=== PATIENT | female | born 1975 | race Two or more races ===

== ENCOUNTER 2018-12-26 22:11 | Emergency (ER) | payer MEDICAID ==
[~2018-12-26] VITALS: Ht 149.9 cm; Wt 62.6 kg
[2018-12-26 23:09] VITALS: BP 102/75
[2018-12-27] MEDS ORDERED: BENZOCAINE (DENTAL) 20 % SPRAY 60ML MT ONE (01:30)
[2018-12-27] MEDS ORDERED: HYDROcodone-ACET 10/325MG TAB PO ONE (02:00)
[2018-12-27] MEDS ORDERED: cefTRIAXone SOD 1,000 MG VL IM ONE (02:00)
== END 2018-12-27 02:45 | disposition home or self-care (01) ==
LOC: ER 22:11
DX: K08.89 Other specified disorders of teeth and supporting structures (principal)
CPT/HCPCS: 64400; 96372; 99284; J0696

== ENCOUNTER 2021-07-25 14:19 | Emergency (ER) | payer OTHER ==
[~2021-07-25] VITALS: Ht 149.9 cm; Wt 65.8 kg
[2021-07-25 14:59] VITALS: BP 118/66
== END 2021-07-25 15:56 | disposition left against medical advice (07) ==
LOC: ER 14:19
DX: R53.1 Weakness (principal); R06.02 Shortness of breath; Z53.29 Procedure and treatment not carried out because of patient's decision for other reasons; Z90.710 Acquired absence of both cervix and uterus
CPT/HCPCS: 71046

== ENCOUNTER 2023-12-09 12:41 | Inpatient (IN) | payer OTHER ==
[~2023-12-09] VITALS: Ht 149.9 cm; Wt 70.1 kg
[~2023-12-09 12:41] MED LIST: ACET500T58 PO; NAPR-957 PO; PROM1SOL4 PO
[2023-12-09 13:04] LABS: Basophils # (auto) 0 10 ^3/uL (0-0.2); Basophils % (auto) 0.1 % (0.0-2.0); Eosinophils # (auto) 0.1 10 ^3/uL (0-0.8); Eosinophils % (auto) 1.6 % (0.0-7.0); Hematocrit 40.7 % (36.0-46.0); Hemoglobin 13.3 g/dL (12.2-16.2); Lymphocytes # (auto) 1.5 10 ^3/uL (0.4-5.4); Lymphocytes % (auto) 24.5 % (10.0-50.0); Mean Corpuscular Hemoglobin 30.7 pg (28.0-32.0); Mean Corpuscular Hgb Conc. 32.7 g/dL (32.0-36.0); Mean Corpuscular Volume 93.8 fL (80.0-100.0); Monocytes # (auto) 0.5 10 ^3/uL (0-1.3); Neutrophils % (auto) 65.8 % (37.0-80.0); Red Blood Cells 4.34 10^6/uL (4.0-5.20); Red Cell Distribution Width 13.3 % (11.8-14.3); White Blood Cell 6.1 10^3/uL (4.4-10.8)
[2023-12-09 13:13] LABS: Alanine Aminotransferase 23 U/L (7-40); Albumin 4.6 g/dL (3.2-4.8); Alkaline Phosphatase 71 U/L (46-116); Anion Gap 8 (5-15); Aspartate Aminotransferase 22 U/L (13-40); BUN/Creatinine Ratio 16.9 (10.0-20.0); Blood Urea Nitrogen 12 mg/dL (9-23); Calcium 9.5 mg/dL (8.5-10.1); Carbon Dioxide 26 mmol/L (20-30); Chloride 103 mmol/L (98-107); Sodium 137 mmol/L (136-145)
[2023-12-09 13:14] LABS: Bilirubin, Total 0.4 mg/dL (0.2-1.0); Total Protein 6.6 g/dL (5.7-8.2)
[2023-12-09 13:17] LABS: Glucose 123 mg/dL (74-106)
[2023-12-09] MEDS: ASPirin 325 MG TAB PO ONE (13:39)
[2023-12-09] MEDS ORDERED: HYDROcodone-ACET 5/325MG TAB PO PRN (18:15)
[2023-12-09] MEDS ORDERED: DOCUSATE SOD 100 MG CAP PO PRN (18:15)
[2023-12-09] MEDS ORDERED: ACETAMINOPHEN 325 MG TAB PO PRN (18:15)
[2023-12-09] MEDS ORDERED: hydrALAZINE HCL 20 MG/ML VL IV PRN (18:15)
[2023-12-09] MEDS: ATORVASTATIN 20 MG TAB PO SCH (23:31)
[2023-12-10] VITALS (8 sets, daily range): BP systolic 91–106; BP diastolic 56–65; PULSE 57–73; RESP 17–22; TEMP 98.1–98.5; O2SAT 95–100
[2023-12-10] MEDS ORDERED: ATOR10TA PO (03:13)
[2023-12-10] MEDS ORDERED: GABA250S7 PO (03:13)
[2023-12-10 04:59] LABS: Basophils # (auto) 0 10 ^3/uL (0-0.2); Basophils % (auto) 0.1 % (0.0-2.0); Eosinophils # (auto) 0.1 10 ^3/uL (0-0.8); Eosinophils % (auto) 2.3 % (0.0-7.0); Hematocrit 37.9 % (36.0-46.0); Hemoglobin 12.5 g/dL (12.2-16.2); Lymphocytes # (auto) 1.7 10 ^3/uL (0.4-5.4); Mean Corpuscular Hemoglobin 30.8 pg (28.0-32.0); Mean Corpuscular Volume 93.2 fL (80.0-100.0); Monocytes # (auto) 0.4 10 ^3/uL (0-1.3); Monocytes % (auto) 6.7 % (0.0-12.0); Neutrophils # (auto) 3.4 10 ^3/uL (1.6-8.6); Neutrophils % (auto) 60.9 % (37.0-80.0); Red Blood Cells 4.07 10^6/uL (4.0-5.20); Red Cell Distribution Width 13.2 % (11.8-14.3); White Blood Cell 5.5 10^3/uL (4.4-10.8)
[2023-12-10 05:16] LABS: Alanine Aminotransferase 16 U/L (7-40); Albumin 3.9 g/dL (3.2-4.8); Alkaline Phosphatase 58 U/L (46-116); Anion Gap 6 (5-15); Aspartate Aminotransferase 23 U/L (13-40); BUN/Creatinine Ratio 14.5 (10.0-20.0); Bilirubin, Total 0.6 mg/dL (0.2-1.0); Blood Urea Nitrogen 9 mg/dL (9-23); Calcium 8.7 mg/dL (8.5-10.1); Carbon Dioxide 27 mmol/L (20-30); Chloride 104 mmol/L (98-107); Cholesterol 150 mg/dL (< 200); Glucose 90 mg/dL (74-106); HDL Cholesterol 76 mg/dL (40-59); LDL Cholesterol 64 mg/dL (< 100); Potassium 3.6 mmol/L (3.5-5.1); Sodium 137 mmol/L (136-145); Total Protein 5.9 g/dL (5.7-8.2); Triglycerides 70 mg/dL (< 150)
[2023-12-10] MEDS: NITROGLYCERIN 0.4 MG SL TAB SL PRN (08:26)
[2023-12-10 10:45] LABS: INR 1.04 (0.9-1.15); Partial Thromboplastin Time 26.2 SEC (24.5-34.5); Prothrombin Time 10.9 sec (9.3-11.8)
[2023-12-10] MEDS: ASPirin-EC 81 mg tab PO SCH (10:52)
[2023-12-10] MEDS: MORPHINE SULFATE INJ 2 MG/ml SYRG IV PRN (12:34)
[2023-12-10] MEDS: ONDANSETRON HCL 4 MG/2 ML VIAL IV PRN (12:34)
[2023-12-10 15:30] LABS: Urine Bacteria FEW /hpf (None Seen); Urine Blood Negative /uL (Negative); Urine Clarity Clear (Clear); Urine Color Colorless (Yellow); Urine Protein, UAD Negative (Negative); Urine Specific Gravity 1.013 (1.001-1.035); Urine Urobilinogen Normal (Negative); Urine WBC <1 /hpf (0 - 5); Urine pH 7.5 (5.0-8.0)
[2023-12-10 15:34] LABS: Amphetamine Screen, Urine Neg (NEGATIVE); Barbiturate Scree,Urine Neg (NEGATIVE); Cocaine Screen, Urine Neg (NEGATIVE)
[2023-12-10 15:35] LABS: Cannabinoid Screen, Urine Neg (NEGATIVE); Opiate Scree,Urine Neg (NEGATIVE); Phencyclidine Screen, Urine Neg (NEGATIVE)
[2023-12-10] MEDS ORDERED: HEPARIN DRIP/D5W 100UNITS/ML 250 ML IV SCH (15:45)
[2023-12-10 16:17] LABS: Basophils # (auto) 0 10 ^3/uL (0-0.2); Basophils % (auto) 0.1 % (0.0-2.0); Eosinophils # (auto) 0.1 10 ^3/uL (0-0.8); Eosinophils % (auto) 1.3 % (0.0-7.0); Hematocrit 39.9 % (36.0-46.0); Hemoglobin 13.2 g/dL (12.2-16.2); Lymphocytes # (auto) 1.4 10 ^3/uL (0.4-5.4); Lymphocytes % (auto) 23.6 % (10.0-50.0); Mean Corpuscular Hemoglobin 30.6 pg (28.0-32.0); Mean Corpuscular Hgb Conc. 33.1 g/dL (32.0-36.0); Mean Corpuscular Volume 92.4 fL (80.0-100.0); Monocytes # (auto) 0.5 10 ^3/uL (0-1.3); Monocytes % (auto) 8.5 % (0.0-12.0); Neutrophils # (auto) 3.8 10 ^3/uL (1.6-8.6); Neutrophils % (auto) 66.5 % (37.0-80.0); Nucleated Red Blood Cells % 0.1 %; Red Blood Cells 4.32 10^6/uL (4.0-5.20); Red Cell Distribution Width 13.3 % (11.8-14.3); White Blood Cell 5.7 10^3/uL (4.4-10.8)
[2023-12-10 16:37] LABS: Benzodiazephine Screen, Urine Neg (NEGATIVE)
[2023-12-10] MEDS: HEPARIN DRIP/D5W 100UNITS/ML 250 ML IV SCH (17:41)
[2023-12-10] MEDS: ERGOCALCIFEROL 50,000 UNIT(1.25MG) CAP PO SCH (17:41)
[2023-12-10] MEDS: HEPARIN SODIUM (PORCINE) 5000 UNITS/ML 1ML VIAL IV ONE (17:41)
[2023-12-10 18:45] LABS: INR 1.01 (0.9-1.15); Partial Thromboplastin Time 25.9 SEC (24.5-34.5); Prothrombin Time 10.6 sec (9.3-11.8)
[2023-12-10] MEDS: GABAPENTIN 100 MG CAP PO SCH (21:20)
[2023-12-10] MEDS ORDERED: ENOXAPARIN SOD 80 MG/0.8ML SYRINGE SC SCH (22:00)
[2023-12-10 23:59] LABS: INR 1.02 (0.9-1.15); Partial Thromboplastin Time 45.6 SEC (24.5-34.5); Prothrombin Time 10.7 sec (9.3-11.8)
[2023-12-11] VITALS (16 sets, daily range): BP systolic 81–110; BP diastolic 39–72; PULSE 52–71; RESP 11–18; TEMP 97.9–99.7; O2SAT 94–99
[2023-12-11 06:37] LABS: Alanine Aminotransferase 18 U/L (7-40); Albumin 3.7 g/dL (3.2-4.8); Alkaline Phosphatase 59 U/L (46-116); Anion Gap 7 (5-15); Aspartate Aminotransferase 18 U/L (13-40); BUN/Creatinine Ratio 19.7 (10.0-20.0); Blood Urea Nitrogen 13 mg/dL (9-23); Calcium 8.3 mg/dL (8.7-10.4); Carbon Dioxide 24 mmol/L (20-30); Chloride 106 mmol/L (98-107); Glucose 95 mg/dL (74-106); Magnesium 1.8 mg/dL (1.6-2.6); Sodium 137 mmol/L (136-145)
[2023-12-11 06:38] LABS: Bilirubin, Total 0.4 mg/dL (0.2-1.0); Total Protein 5.9 g/dL (5.7-8.2)
[2023-12-11 06:44] LABS: INR 1.02 (0.9-1.15); Partial Thromboplastin Time 63.6 SEC (24.5-34.5); Prothrombin Time 10.7 sec (9.3-11.8)
[2023-12-11 06:59] LABS: Basophils # (auto) 0 10 ^3/uL (0-0.2); Basophils % (auto) 0.2 % (0.0-2.0); Eosinophils # (auto) 0.1 10 ^3/uL (0-0.8); Eosinophils % (auto) 2.2 % (0.0-7.0); Hematocrit 37.1 % (36.0-46.0); Hemoglobin 12.2 g/dL (12.2-16.2); Lymphocytes # (auto) 1.3 10 ^3/uL (0.4-5.4); Mean Corpuscular Hemoglobin 30.6 pg (28.0-32.0); Mean Corpuscular Hgb Conc. 32.9 g/dL (32.0-36.0); Mean Corpuscular Volume 92.9 fL (80.0-100.0); Monocytes # (auto) 0.5 10 ^3/uL (0-1.3); Monocytes % (auto) 7.6 % (0.0-12.0); Neutrophils # (auto) 4.2 10 ^3/uL (1.6-8.6); Nucleated Red Blood Cells % 0.2 %; Red Cell Distribution Width 12.9 % (11.8-14.3); White Blood Cell 6.1 10^3/uL (4.4-10.8)
[2023-12-11 12:39] LABS: INR 0.99 (0.9-1.15); Prothrombin Time 10.4 sec (9.3-11.8)
[2023-12-11 12:50] LABS: Partial Thromboplastin Time 74.5 SEC (24.5-34.5)
[2023-12-11] MEDS: ANGIOMAX 250 MG VIAL IV ONE (13:09)
[2023-12-11] MEDS: MIDAZOLAM HCL 2MG/2ML 2ml VIAL (1mg/ml) ONE (13:10)
[2023-12-11] MEDS: VERAPAMIL 2.5MG/ML INJ 2ML VIAL IV ONE (13:10)
[2023-12-11] MEDS: fentaNYL CITRATE 100 MCG/2 ML VL ONE (13:10)
[2023-12-11] MEDS: SODIUM CHL 0.9% 0 ML ONE (13:10)
[2023-12-11] MEDS: HEPARIN SODIUM (PORCINE) 5000 UNITS/ML 1ML VIAL ONE (13:10)
[2023-12-11] MEDS: IODIXANOL 320MG/ML 100ML BTL IV ONE (13:21)
[2023-12-11] MEDS: SODIUM CHLORIDE 0.9% 500 ML IV ONE (14:46)
[2023-12-11] MEDS: GABAPENTIN 100 MG CAP PO SCH (15:56)
[2023-12-11] MEDS ORDERED: CARB200T4 PO (16:00)
[2023-12-11] MEDS: carBAMazepine 200 MG TAB PO SCH (16:14)
[2023-12-11] MEDS: KETOROLAC TROMETH 30 MG/ML 1ML VIAL IV ONE (17:43)
[2023-12-12 05:08] VITALS: BP 84/53; PULSE 71; RESP 20; TEMP 98.6; O2SAT 99
[2023-12-12 05:56] VITALS: BP 102/56; PULSE 70
[2023-12-12 06:48] LABS: Alanine Aminotransferase 15 U/L (7-40); Albumin 3.6 g/dL (3.2-4.8); Alkaline Phosphatase 59 U/L (46-116); Anion Gap 8 (5-15); Aspartate Aminotransferase 17 U/L (13-40); BUN/Creatinine Ratio 17.1 (10.0-20.0); Blood Urea Nitrogen 13 mg/dL (9-23); Calcium 8.1 mg/dL (8.7-10.4); Carbon Dioxide 23 mmol/L (20-30); Chloride 109 mmol/L (98-107); Glucose 87 mg/dL (74-106); Magnesium 1.9 mg/dL (1.6-2.6); Potassium 4.2 mmol/L (3.5-5.1); Sodium 140 mmol/L (136-145)
[2023-12-12 06:49] LABS: Bilirubin, Total 0.3 mg/dL (0.2-1.0); Total Protein 5.6 g/dL (5.7-8.2)
[2023-12-12 07:06] LABS: Basophils # (auto) 0 10 ^3/uL (0-0.2); Basophils % (auto) 0.2 % (0.0-2.0); Eosinophils # (auto) 0.1 10 ^3/uL (0-0.8); Eosinophils % (auto) 2.3 % (0.0-7.0); Hematocrit 36.8 % (36.0-46.0); Hemoglobin 12.2 g/dL (12.2-16.2); Lymphocytes # (auto) 1.4 10 ^3/uL (0.4-5.4); Lymphocytes % (auto) 26.5 % (10.0-50.0); Mean Corpuscular Hemoglobin 30.8 pg (28.0-32.0); Mean Corpuscular Volume 93.3 fL (80.0-100.0); Monocytes # (auto) 0.5 10 ^3/uL (0-1.3); Monocytes % (auto) 10.1 % (0.0-12.0); Neutrophils # (auto) 3.3 10 ^3/uL (1.6-8.6); Neutrophils % (auto) 60.9 % (37.0-80.0); Red Blood Cells 3.94 10^6/uL (4.0-5.20); Red Cell Distribution Width 13.1 % (11.8-14.3); White Blood Cell 5.4 10^3/uL (4.4-10.8)
[2023-12-12 08:00] VITALS: PULSE 92
[2023-12-12 08:38] LABS: Hepatitis B Surface Antigen Negative (Negative)
[2023-12-12 08:59] LABS: Hepatitis C Antibody Negative (Negative)
[2023-12-12 09:01] VITALS: BP 108/60; PULSE 78; RESP 16; TEMP 98; O2SAT 96
[2023-12-12] MEDS ORDERED: ATOR20TA50 PO (09:41)
[2023-12-12 13:00] VITALS: BP 108/64; PULSE 74; RESP 18; TEMP 98.1; O2SAT 96
== END 2023-12-12 13:17 | disposition home or self-care (01) | DRG 191 ==
LOC: ER 12:41 → TELE 18:11 → TELE-WESTW 23:19
PROVIDERS: ADMIT Internal Medicine Pulmonary Disease; ATTEND Student in an Organized Health Care Education/Training Program
PROC: 4A023N7 Measurement of Cardiac Sampling and Pressure, Left Heart, Percutaneous Approach (ICD-10-PCS; principal; 2023-12-11)
PROC: B2111ZZ Fluoroscopy of Multiple Coronary Arteries using Low Osmolar Contrast (ICD-10-PCS; 2023-12-11)
PROC: B215YZZ Fluoroscopy of Left Heart using Other Contrast (ICD-10-PCS; 2023-12-11)
DX: I20.81 Angina pectoris with coronary microvascular dysfunction (principal); E55.9 Vitamin D deficiency, unspecified; E78.5 Hyperlipidemia, unspecified; G50.0 Trigeminal neuralgia; I44.7 Left bundle-branch block, unspecified; G43.909 Migraine, unspecified, not intractable, without status migrainosus; I45.4 Nonspecific intraventricular block; Z79.82 Long term (current) use of aspirin
CPT/HCPCS: 36415; 71045; 80053; 80061; 80307; 81001; 82306; 82550; 82607; 83036; 83605; 83735; 83880; 84443; 84484; 85025; 85610; 85730; 86803; 87340; 93005; 93306; 93458; 99152; G0378; J1885; J2250; J2405; Q9967

== ENCOUNTER 2024-06-11 11:39 | Emergency (ER) | payer OTHER ==
[~2024-06-11] VITALS: Ht 149.9 cm; Wt 65.0 kg
[~2024-06-11 11:39] MED LIST changes: -ACET500T58 PO; +ATOR10TA PO; +ATOR20TA50 PO; +CARB200T4 PO; +GABA250S7 PO; -NAPR-957 PO; -PROM1SOL4 PO
[2024-06-11 13:17] VITALS: BP 116/70; PULSE 65; RESP 16; TEMP 98.6; O2SAT 98
[2024-06-11 13:24] LABS: Hepatitis B Surface Antibody Positive (Negative)
[2024-06-11 13:36] LABS: Hepatitis B Surface Antigen Negative (Negative)
== END 2024-06-11 13:44 | disposition home or self-care (01) ==
LOC: ER 11:39
DX: Z77.21 Contact with and (suspected) exposure to potentially hazardous body fluids (principal); Z90.710 Acquired absence of both cervix and uterus; Z79.899 Other long term (current) drug therapy; W46.0XXA Contact with hypodermic needle, initial encounter; Y93.89 Activity, other specified; Y92.89 Other specified places as the place of occurrence of the external cause; Y99.0 Civilian activity done for income or pay
CPT/HCPCS: 36415; 86703; 86706; 86803; 87340

== ENCOUNTER 2024-09-18 07:31 | Emergency (ER) | payer MEDICAID ==
[~2024-09-18] VITALS: Ht 149.9 cm; Wt 63.8 kg
--- NOTE | 2024-09-18 08:01 | ED.PDOC ---
History of Present Illness HPI Comments A 49 year old female presents to the ED with a chief complaint of wound check onset today. Patient states she had a breast implant explantation about 1 month ago and since then has been experiencing pain to LT breast with drainage, white/yellow color and noticed a purple color on breast. Patient also states her surgeon gave her two rounds of Cipro but did not improve symptoms. She has 2 sutures on LT breast that has not been dissolved, surgeon [place] and recommended patient to go to ED. She is also experiencing generalized weakness, facial tingling, loss of appetite. Patient has a past medical history of Hypotension and denies nausea, vomiting, fever, chest pain, shortness of breath. No other symptoms or modifying factors present at this time. Chief Complaint: Wound Check Time Seen by MD: 07:48 Primary Care Provider: SADIA Laird Notes: Medications, Allergies Allergies: Coded Allergies: NO KNOWN ALLERGIES (Unverified , 12/27/18) Home Meds Active Scripts Atorvastatin Calcium (ATORVASTATIN CALCIUM) 20 Mg Tab, 40 MG PO DAILY for 30 Days, #60 TAB Prov:EDDIE SANABRIA RESIDENT 12/12/23 Reported Medications Carbamazepine (Carbamazepine) 200 Mg Tab, 600 MG PO Q8HR for 30 Days, MG 12/11/23 Atorvastatin Calcium (Lipitor) 10 Mg Tab, 1 TAB PO DAILY, #30 TAB 5 Refills 12/10/23 Gabapentin (GABAPENTIN) 250 Mg/5 Ml [place], 1200 MG PO TID, ML 12/10/23 Information Source: Patient Mode of Arrival: Ambulatory Severity: Moderate Timing: Months Duration: Since onset Prehospital treatment: None Past Medical History PAST MEDICAL HISTORY: Hypotension Surgical History: Hysterectomy Surgical History (Other): breast implants, breast implant explantation DIE HARDENER History: No Pertinent DIE HARDENER History Family History Family History: Reviewed,noncontributory to illness, Family hx of Cancer Social History Smoker: Non-Smoker Alcohol: Rarely Drugs: Denies Drug Use Lives In: Home Constitutional: reports: weakness; denies: chills, diaphoresis, fatigue, fever, malaise, sweats, others EENTM: denies: blurred vision, double vision, ear bleeding, ear discharge, ear drainage, ear pain, ear ringing, eye pain, eye redness, hearing loss, mouth pain, mouth swelling, nasal discharge, nose bleeding, nose congestion, nose pain, photophobia, tearing, throat pain, throat swelling, voice changes, others Respiratory: denies: cough, hemoptysis, orthopnea, SOB at rest, shortness of breath, SOB with excertion, stridor, wheezing, others Cardiovascular: denies: chest pain, dizzy spells, diaphoresis, Dyspnea on exertion, edema, irregular heart beat, left arm pain, lightheadedness, palpitations, PND, syncope, others Gastrointestinal: denies: abdomen distended, abdominal pain, blood streaked bowels, constipated, diarrhea, dysphagia, difficulty swallowing, hematemesis, melena, nausea, poor appetite, poor fluid intake, rectal bleeding, rectal pain, vomiting, others Genitourinary: reports: others; denies: abnormal vagina bleeding, burning, dyspareunia, dysuria, flank pain, frequency, hematuria, incontinence, pain, preg nant, vagina discharge, urgency Neurological: reports: dizziness, tingling (facial ), weakness; denies: fainting, headache, left sided numbness, left sided weakness, numbness, paresthesia, pre-existing deficit, right sided numbness, right sided weakness, seizure, speech problems, tremors, others Musculoskeletal: denies: back pain, gout, joint pain, joint swelling, muscle pain, muscle stiffness, neck pain, others Integumetry: reports: change in color (LT breast ); denies: bruises, change in hair/nails, dryness, laceration, lesions, lumps, rash, wounds, others Allergic/Immunocompromised: denies: Difficulty Healing, Frequent Infections, Hives, Itching, others Hematologic/Lymphatic: denies: anemia, blood clots, easy bleeding, easy bruising, swollen glands, others Endocrine: denies: excessive hunger, excessive sweating, excessive thirst, excessive urination, flushing, intolerance to cold, intolerance to heat, unexplained weight gain, unexplained weight loss, others Psychiatric: denies: anxiety, bipolar disorder, depression, hopeless, panic disorder, schizophrenia, sleepless, suicidal, others All Other Systems: Reviewed and Negative Physical Exam General Appearance: No Apparent Distress, Normal HEENT: Normal ENT Inspection, Pharynx Normal, TMs Normal Neck: Full Range of Motion, Non-Tender, Normal, Normal Inspection Respiratory: Chest Non-Tender, Lungs Clear, No Accessory Muscle Use, No Respiratory Distress, Normal Breath Sounds Cardiovascular: No Edema, No JVD, No Murmur, No Gallop, Normal Peripheral Pulses, Regular Rate/Rhythm Breast Exam: (L) Tenderness (from 3 o'clock to 6 o'clock position ), Other (LT breast warm to touch, hisense noted to LT breast from 5 o'clock to 7 o'clock position ) Gastrointestinal: No Organomegaly, Non Tender, No Pulsatile Mass, Normal Bowel Sounds, Soft Genitalia: Deferred Pelvic: Deferred Rectal: Deferred Extremities: No calf tenderness, Normal capillary refill, Normal inspection, Normal range of motion, Non-tender, No pedal edema Musculoskeletal : Apperance: Normal Neurologic: Alert, project management intern II-XII nml as Tested, No Motor Deficits, Normal Affect, Normal Mood, No Sensory Deficits Cerebellar Function: Normal Reflexes: Normal Skin: Dry, Normal Color, Warm Lymphatic: No Adenopathy Was a procedure done? Was a procedure done?: No Differential Dx Considerations may include: Cellulitis, dehiscence, abscess X-Ray, Labs, Meds, VS Vital Signs Date Time Temp Pulse Resp B/P (MAP) Pulse Ox O2 Delivery O2 Flow Rate FiO2 09/18/24 13:35 61 13 97/57 (70) 94 09/18/24 13:02 67 16 97/57 09/18/24 12:32 62 16 104/66 09/18/24 11:30 61 14 93/53 (66) 96 09/18/24 08:10 63 16 99 Room Air* 0 21 09/18/24 08:10 97.7 63 16 110/67 (81) 99 97.7 09/18/24 07:47 98.0 74 16 124/78 (93) 96 Lab Test 09/18/24 08:08 Range/Units White Blood Count 5.0 4.4-10.8 10^3/uL Red Blood Count 4.25 4.0-5.20 10^6/uL Hemoglobin 13.2 12.2-16.2 g/dL Hematocrit 39.1 36.0-46.0 % Mean Corpuscular Volume 92.1 80.0-100.0 fL Mean Corpuscular Hemoglobin 31.1 28.0-32.0 pg Mean Corpuscular Hemoglobin Concent 33.7 32.0-36.0 g/dL Red Cell Distribution Width 13.3 11.8-14.3 % Platelet Count 159 140-450 10^3/uL Mean Platelet Volume 11.7 H 6.9-10.8 fL Neutrophils (%) (Auto) 68.4 37.0-80.0 % Lymphocytes (%) (Auto) 20.6 10.0-50.0 % Monocytes (%) (Auto) 9.0 0.0-12.0 % Eosinophils (%) (Auto) 1.8 0.0-7.0 % Basophils (%) (Auto) 0.2 0.0-2.0 % Neutrophils # (Auto) 3.4 1.6-8.6 10 ^3/uL Lymphocytes # (Auto) 1.0 0.4-5.4 10 ^3/uL Monocytes # (Auto) 0.5 0-1.3 10 ^3/uL Eosinophils # (Auto) 0.1 0-0.8 10 ^3/uL Basophils # (Auto) 0 0-0.2 10 ^3/uL Nucleated Red Blood Cells 0.1 % Sodium Level 138 136-145 mmol/L Potassium Level 4.1 3.5-5.1 mmol/L Chloride Level 103 98-107 mmol/L Carbon Dioxide Level 27 20-31 mmol/L Anion Gap 8 5-15 Blood Urea Nitrogen 7 L 9-23 mg/dL Creatinine 0.65 0.550-1.02 mg/dL Glomerular Filtration Rate Calc 109 >90 mL/min BUN/Creatinine Ratio 10.8 10.0-20.0 Serum Glucose 94 74-106 mg/dL Lactic Acid Level 1.5 0.4-2.0 mmol/L Calcium Level 9.7 8.7-10.4 mg/dL Current Medications Medications (Trade) Dose Ordered Sig/Annette Route Start Time Stop Time Status Last Admin Sodium Chloride 1,000 ml @ 1,000 mls/hr Q1H ONCE IV 09/18/24 08:00 09/18/24 08:59 DC 09/18/24 08:30 Ketorolac Tromethamine (Toradol Injection) 15 mg ONCE ONCE IV 09/18/24 09:00 09/18/24 09:01 DC 09/18/24 09:08 Vancomycin HCl 200 ml @ 200 mls/hr ONCE ONCE IV 09/18/24 12:00 09/18/24 12:59 DC 09/18/24 12:05 Morphine Sulfate 4 mg ONCE ONCE IV 09/18/24 12:00 09/18/24 12:01 DC 09/18/24 12:32 Sodium Chloride 1,000 ml @ 1,000 mls/hr Q1H ONCE IV 09/18/24 12:15 09/18/24 13:14 DC 09/18/24 12:14 [place] [id number] Ph: [phone] DIAGNOSTIC IMAGING Diagnostic Imaging Report : [id number] Signed PATIENT: DEANDRA CHESTER ACCT: [id number] UNIT: [id number] : 1975 LOC: ER ROOM / BED: / AGE / SEX: 49 / F ADM STATUS: REG ER SERVICE 6 ORDERING PHYSICIAN: MICH RODRIGUEZ MD PROCEDURE(s): CXICT - CHEST WITH CONTRAST REASON: left breast pain, recent breast surgery, ORDER NUMBER(s): [id number], ACCESSION NUMBER(s): [id number] CLINICAL INFORMATION: 49 years old, Female; left breast pain, recent breast surgery,. TECHNIQUE: Axial CT images of the chest were obtained after the uneventful administration of 100 mL of Omnipaque 300 IV contrast. Coronal and sagittal reformatted images were obtained, reviewed, and stored. One or more of the following dose reduction techniques were used: Automated exposure control. Adjustment of mA and/or kV according to patient size. CTDIvol = 5.87 mGy DLP = 219.63 mGy-cm COMPARISON: Chest radiograph dated 12/10/2023. FINDINGS: Aorta: No aneurysm or dissection. Cardiac: Heart size is within normal limits. No significant calcification. Mediastinum/maine: No mass or adenopathy. Lungs: Lungs are clear. Pulmonary arteries: No gross abnormality. Chest wall: No mass or other abnormality. Limited evaluation of the breasts on CT. No obvious abnormality identified. Upper abdomen: Vague area of enhancement in the right hepatic lobe measuring up to 1.3 cm, possible flash filling hemangioma or shunting. Bones: No acute fracture or suspicious intraosseous lesions. IMPRESSION: 1. No evidence of acute disease in the chest. 2. Vague area of enhancement in the right hepatic lobe, possible flash filling hemangioma or shunting. Nonemergent MRI liver mass protocol could be considered to further characterize. ATED BY: DUNCAN MARTÍNEZ DO DICTATED DATE/TIME: 09/18/24 1006 SIGNED BY: DUNCAN MARTÍNEZ DO SIGNED DATE/TIME: 09/18/24 1006 CC: Time of 1ST Reevaluation: 08:18 Reevaluation 1ST: Unchanged Consultation: PCP Patient Education/Counseling: Diagnosis, Treatment, Prognosis Family Education/Counseling: No Family Present Additional Information HI DATA VOL/COMPLEXITY:>2 External Notes- Ordered Test- LAB, PHA, CT, ERA Reviewed Results: BMP, CBC, LA w/ reflex, Blood Culture Independent Hx- yes Interpreted Results- CT Discuss Tx/Results- medical personnel, pt Departure 1 Departure Time of Disposition: 14:31 (Patient's likely with cellulitis. Patient has failed outpatient Keflex. We will discharge patient with an Levaquin and breast surgery follow up.) Impression: Primary Impression: Cellulitis Qualified Codes: L03.818 - Cellulitis of other sites Disposition: 01 HOME / SELF CARE / HOMELESS Condition: Stable Additional Instructions: You have an infection of your left breast. You were prescribed antibiotics. Please take as directed. It is important to follow up with your surgeon ivan. For pain you can take the followinam: Ibuprofen 400mg with food Noon: Acetaminophen 1000mg 4pm: Ibuprofen 400mg with food 8pm: Acetaminophen 1000mg If your symptoms worsen or you have any other concerns then please return to the ER. e-Prescriptions Levofloxacin Hemihydrate (LEVAQUIN 500 MG) 500 Mg Tab 750 MG PO DAILY for 5 Days, #8 TAB Prov: MICH RODRIGUEZ MD 09/18/24 Discharged With: Self Critical Care Note Critical Care Time?: No Stability Stability form required: No I personally scribed for MICH RODRIGUEZ MD ([email or web address]) on 09/18/24 at 08:01. Electronically submitted by Luly Bateman ([email or web address]). I personally scribed for MICH RODRIGUEZ MD ([email or web address]) on 09/18/24 at 08:36. Electronically submitted by Luly Bateman ([email or web address]). I personally scribed for MICH RODRIGUEZ MD ([email or web address]) on 09/18/24 at 08:37. Electronically submitted by Luly Bateman ([email or web address]). I personally scribed for MICH RODRIGUEZ MD ([email or web address]) on 09/18/24 at 10:50. Electronically submitted by Luly Bateman ([email or web address]). MICH RODRIGUEZ MD Sep 18, 2024 08:01
[2024-09-18 08:10] VITALS: PULSE 63; RESP 16; TEMP 97.7; O2SAT 99
[2024-09-18] MEDS: SODIUM CHLORIDE 0.9% 1,000 ML IV ONE ×2 (08:30→12:14)
[2024-09-18 08:37] LABS: Basophils # (auto) 0 10 ^3/uL (0-0.2); Basophils % (auto) 0.2 % (0.0-2.0); Eosinophils # (auto) 0.1 10 ^3/uL (0-0.8); Eosinophils % (auto) 1.8 % (0.0-7.0); Hematocrit 39.1 % (36.0-46.0); Hemoglobin 13.2 g/dL (12.2-16.2); Lymphocytes % (auto) 20.6 % (10.0-50.0); Mean Corpuscular Hemoglobin 31.1 pg (28.0-32.0); Mean Corpuscular Hgb Conc. 33.7 g/dL (32.0-36.0); Mean Corpuscular Volume 92.1 fL (80.0-100.0); Monocytes # (auto) 0.5 10 ^3/uL (0-1.3); Neutrophils # (auto) 3.4 10 ^3/uL (1.6-8.6); Neutrophils % (auto) 68.4 % (37.0-80.0); Nucleated Red Blood Cells % 0.1 %; Platelet Count (auto) 159 10^3/uL (140-450); Red Blood Cells 4.25 10^6/uL (4.0-5.20); Red Cell Distribution Width 13.3 % (11.8-14.3)
[2024-09-18 08:46] LABS: Chloride 103 mmol/L (98-107); Potassium 4.1 mmol/L (3.5-5.1); Sodium 138 mmol/L (136-145)
[2024-09-18 08:47] LABS: Anion Gap 8 (5-15); Calcium 9.7 mg/dL (8.7-10.4); Carbon Dioxide 27 mmol/L (20-31)
[2024-09-18 08:52] LABS: BUN/Creatinine Ratio 10.8 (10.0-20.0); Glucose 94 mg/dL (74-106)
[2024-09-18 09:07] LABS: Blood Urea Nitrogen 7 mg/dL (9-23)
[2024-09-18] MEDS: KETOROLAC TROMETH 30 MG/ML 1ML VIAL IV ONE (09:08)
[2024-09-18] MEDS: IOHEXOL 300 MG/ML 100ML BOTTLE IJ ONE (09:32)
--- NOTE | 2024-09-18 10:09 | DVH ---
CLINICAL INFORMATION: 49 years old, Female; left breast pain, recent breast surgery,. TECHNIQUE: Axial CT images of the chest were obtained after the uneventful administration of 100 mL o f Omnipaque 300 IV contrast. Coronal and sagittal reformatted images were obtained, reviewed, and sto red. One or more of the following dose reduction techniques were used: Automated exposure control. Ad justment of mA and/or kV according to patient size. CTDIvol = 5.87 mGy DLP = 219.63 mGy-cm COMPARISON: Chest radiograph dated 12/10/2023. FINDINGS: Aorta: No aneurysm or dissection. Cardiac: Heart size is within normal limits. No significant calcification. Mediastinum/maine: No mass or adenopathy. Lungs: Lungs are clear. Pulmonary arteries: No gross abnormality. Chest wall: No mass or other abnormality. Limited evaluation of the breasts on CT. No obvious abnorma lity identified. Upper abdomen: Vague area of enhancement in the right hepatic lobe measuring up to 1.3 cm, possible f lash filling hemangioma or shunting. Bones: No acute fracture or suspicious intraosseous lesions. IMPRESSION: 1. No evidence of acute disease in the chest. 2. Vague area of enhancement in the right hepatic lobe, possible flash filling hemangioma or shunting . Nonemergent MRI liver mass protocol could be considered to further characterize.
[2024-09-18] MEDS: VANCOMYCIN 1GM/250ML KIT 200 ML IV ONE (12:05)
[2024-09-18] MEDS: MORPHINE SULFATE 4 MG/ML SYR/VIAL IV ONE (12:32)
[2024-09-18] MEDS ORDERED: LEVO500T91 PO (14:37)
[2024-09-18 15:18] VITALS: BP 105/43; PULSE 56; RESP 13; O2SAT 97
== END 2024-09-18 15:26 | disposition home or self-care (01) ==
LOC: ER 07:31
DX: N61.0 Mastitis without abscess (principal); N64.4 Mastodynia; Z79.899 Other long term (current) drug therapy; Z90.710 Acquired absence of both cervix and uterus
CPT/HCPCS: 36415; 71260; 80048; 83605; 85025; 87040; 87077; 87186; 87205; 96361; 96365; 96375; 99285; J1885; J2270; J3370; J7030; Q9967